=== PATIENT | female | born 1990 | race Caucasian/White ===

== ENCOUNTER 2017-06-14 07:28 | Inpatient (IN) | payer OTHER ==
[2017-06-14 07:11] VITALS: BMI 24.5
[2017-06-14] MEDS: Lactated Ringer's 1,000 ML IV SCH ×3 (07:20→21:51)
[2017-06-14] MEDS ORDERED: Oxytocin 20 units in LR 2,000 ML IV ONE (07:48)
[2017-06-14] MEDS ORDERED: cefOXitin IV 2 gm in Dextrose 2 GM/50 ML BAG IVPB ONE ×2 (07:50→08:00)
[2017-06-14 07:56] LABS: BASO % 0.3 % (0.0-2.0); EOS # 0.2 K/uL (0.0-0.7); EOS % 2.3 % (0.0-4.0); HEMOGLOBIN 10.7 g/dL (11.0-16.0); LYMPH # 2.7 K/uL (1.0-4.3); LYMPH % 30.2 % (20.0-40.0); MEAN CELL VOLUME 88.5 fL (81.0-99.0); MEAN CORPUSCULAR HGB CONC 33.9 g/dL (33.0-37.0); MONO # 0.5 K/uL (0.0-0.8); MONO % 5.9 % (0.0-10.0); NEUT # 5.5 K/uL (1.8-7.0); NEUT % 61.3 % (50.0-75.0); RBC 3.56 Mil/uL (3.80-5.20); RED CELL DISTRIBUTION WIDTH 13.9 % (11.5-14.5)
[2017-06-14] MEDS ORDERED: Sodium Citrate/Citric Acid 15 ml Sol PO ONE (08:00)
[2017-06-14 08:07] LABS: ALBUMIN 3.3 g/dL (3.5-5.0)
[2017-06-14 08:10] LABS: ALB/GLOB RATIO 1.1 (1.0-2.1); ALT/SGPT 24 U/L (9-52); AST/SGOT 23 U/L (14-36); BLOOD UREA NITROGEN 5 mg/dL (7-17); GFR AFRICAN-AMERICAN > 60; GFR NON-AFRICAN AMERICAN > 60
[2017-06-14 08:11] LABS: CALCIUM 8.4 mg/dl (8.6-10.4)
[2017-06-14 08:18] LABS: SQUAMOUS EPITHIAL 57 /hpf (0-5); URINE BACTERIA OCC (<OCC); URINE BILIRUBIN NEGATIVE (NEGATIVE); URINE BLOOD NEGATIVE (NEGATIVE); URINE CLARITY Hazy (Clear); URINE COLOR Yellow (YELLOW); URINE GLUCOSE (UA) NORMAL (Normal); URINE LEUKOCYTE ESTERASE 2+ Leu/uL (Negative); URINE NITRATE NEGATIVE (NEGATIVE); URINE PROTEIN NEGATIVE (NEGATIVE)
[2017-06-14] MEDS ORDERED: HYDROmorphone 0.5 mg/0.5 ml ISec IVP PRN ×2 (10:14→12:52)
[2017-06-14] MEDS ORDERED: DiphenhydrAMINE 50 mg/ml Inj IVP PRN (10:45)
[2017-06-14] MEDS ORDERED: Oxycodone/Acetaminophen 5/325 mg Tab PO PRN ×2 (11:00→14:00)
--- NOTE | 2017-06-14 11:01 | OBDS ---
DELIVERY PERSONNEL Delivery Doctor: Sandy Wells MD Sharepoint Trainer: Carter Richmond RN Anesthesiologist: Simone Lemus MD Lock Fitter: Deacon WOODSp d driver MATERNAL INFORMATION Delivery Anesthesia: Spinal Medications in Delivery: PITOCIN 20units Estimated Blood Loss (ml): 700 Placenta Cultured: No Maternal Complications: None Provider Comments: repeat Csection done ebl 700cc LABOR SUMMARY EDC: 06/21/2017 00:00 No. Babies in Womb: 1 Attempted: No Labor Anesthesia: None LABOR INFORMATION Oxytocin: N/A Group B Beta Strep: Negative Steroids Given: None Reason Steroids Not Administered: Not Applicable MEMBRANES Membranes Rupture Method: Artificial VAGINAL DELIVERY Episiotomy: None Laceration Extension: N/A Laceration Type: None CSECTION DELIVERY Primary Indication: Repeat Elective Secondary Indication: N/A CSection Urgency: N/A CSection Incidence: Repeat Labor: N/A Elective: Elective Uterine Closure: Double-layer closure BABY A INFORMATION Delivery Date/Time: 06/14/2017 09:06 Method of Delivery: Born in Route : No : N/A Forceps: N/A Vacuum Extraction: N/A Shoulder Dystocia : No SHOULDER DYSTOCIA BABY A Delivery Date/Time: 06/14/2017 09:06 INFORMATION BABY A Gestational Age at Delivery: 39.0 Gestational Status: Term Outcome : Liveborn IDENTIFICATION/MEDS BABY A ID Band Number: [id number] ID Band Location: Left Leg; Left Arm Sensor Number: [id number] Sensor Location : Cord Clamp WEIGHT/LENGTH BABY A Birthweight (gms): 3310 Infant Weight (lb): 7 Infant Weight (oz): 5 Length Inches: 19.50 Infant Length cms: 49.5
[2017-06-14] MEDS ORDERED: HYDROmorphone 0.5 mg/0.5 ml ISec ONE (12:54)
--- NOTE | 2017-06-14 14:12 | OBADHP ---
Datetime: 06/14/2017 07:44 Admit Comment, IP Provider: 27 yo at 39 weeks 0 days JACOBO 06/21/17 by LMP c/w 30w2d US present s to L and D for scheduled repeat C/S. Patient is doing well, no complaints. Endorses +FM, denies CTX , vaginal bleeding, leakage of fluid. Issues: Late to care Hx of Chlamydia - Chlamydia + in urine on 03/17/17, SANAZ negative 05/23/17 C/S x 2 OB Hx: 1. 2012 SAB 2. 2014 PLTCD 2/2 hx of seizures, M 7lb0oz, at [facility] [place], no complications 3. 2015 RLTCD M [id number], at [facility], no complications [employer] Hx: LMP 09/14/2016 11//7 days Denies hx of abnormal paps Denies hx of fibroids/ovarian cysts Hx of Chlamydia in 2012 Allergies: NKDA Medications: PNV, Ferrous sulfate Medical Hx: Seizures, last seizure >10 years ago Surgical Hx: C/S x 2 Social Hx: Denies alcohol, tobacco, drug use Family Hx: Denies Labs: O+ Rubella immune HIV NR HepBsag negative RPR NR CF negative 1hr GCT 134 HgbA1C 5.3 GBS negative Last US 05/25: Single IUP, EFW 3021g, placenta anteroposteriorly/fundus A/P: 27 yo at 39 weeks presents for repeat C/S 1. Stable, afebrile 2. Admit to L and D 3. CEFM and TOCO 4. Admission labs: T+S, CBC, CMP, RPR, UA 5. LR bolus 6. NPO 7. Cefoxitin 2gm preoperatively 8. Consents signed and in chart 9. Patient reports that she desires BTL however consents were never signed, discussed with patient other forms of contraception 10. Plan d/w attending Jamila Oropeza PGY-1 OB attending Patient seen and examined.Agree with resident exam, assessment and plan Chief complaint-term ; previous csection Pelvic Type - PN: Adequate Extremities - PN: Normal Abdomen - PN: Normal Back - PN: Normal Breast - PN: Normal Lungs - PN: Normal Heart - PN: Normal Thyroid - PN: Normal Neurologic - PN: Normal HEENT - PN: Normal General - PN: Normal FHR - Baseline A Provider: 135 Comments, ACOG Physical Exam: VS: BP 117/76, HR 105, T 97.9 Gen: AAOx3, NAD CV: RRR Lungs: CTA B/L Abdomen: soft, gravid Ext: No clubbing, cyanosis, edema EFM: 135bpm, Moderate variability, +accels, -decels TOCO: occasional Gestation - Est Wks by US: 39.0 Vital Signs Provider: Reviewed IP Chief Complaint: Scheduled Section NICHD Variability Prov Fetus A: Moderate 6-25bpm NICHD Accel Fetus A IP Provider: [id number] FHR Category Provider Fetus A: Category I NICHD Decel Fetus A IP Provider: None Genitourinary Exam: Normal DTRs - PN: Normal EGA AdmitDate IP: 39.0 IP Adm Impression: Term, intrauterine IP Admit Plan: Admit to unit; Initiate Section protocol
[2017-06-14] MEDS: cefOXitin IV 2 gm in Dextrose 2 GM/50 ML BAG IVPB SCH ×2 (17:08→23:54)
[2017-06-14] MEDS: Simethicone 80 mg Chewtab PO SCH ×2 (17:46→21:48)
[2017-06-15] MEDS: Lactated Ringer's 1,000 ML IV SCH (05:53)
[2017-06-15 09:11] LABS: HEMOGLOBIN 9.4 g/dL (11.0-16.0); MEAN CELL VOLUME 88.5 fL (81.0-99.0); MEAN CORPUSCULAR HEMOGLOBIN 29.5 pg (27.0-31.0); MEAN CORPUSCULAR HGB CONC 33.3 g/dL (33.0-37.0); RBC 3.18 Mil/uL (3.80-5.20); RED CELL DISTRIBUTION WIDTH 14.1 % (11.5-14.5); WHITE BLOOD COUNT 11.6 K/uL (4.8-10.8)
[2017-06-15] MEDS: Simethicone 80 mg Chewtab PO SCH ×4 (09:48→21:07)
[2017-06-15] MEDS: Prenatal Multivit/Folic Acid/Iron Tab PO SCH (09:48)
--- NOTE | 2017-06-15 10:42 | OP ---
PROCEDURE DATE: 06/14/2017 PREOPERATIVE DIAGNOSES: 1. Previous section. 2. Term intrauterine . POSTOPERATIVE DIAGNOSES: 1. Previous section. 2. Term intrauterine . PROCEDURE PERFORMED: Repeat low transverse section. SURGEON: Max Wells MD ASSISTANTS: 1. Allen Justin MD 2. Dr. Collins, PGY1. TYPE OF ANESTHESIA: Spinal. ANESTHESIA ADMINISTERED BY: Dr. Quevedo. FINDINGS: Viable female with rate of 7 pounds 5 ounces and 's of 9 at 1 minute and 9 in 5 minutes of life. ESTIMATED BLOOD LOSS: 700 mL. COMPLICATIONS: None. SPECIMENS: Placenta and cord blood. DESCRIPTION OF PROCEDURE: After informed consent was obtained, the patient was taken to the operating room, where spinal anesthesia was administered by the anesthesia team. She was placed dorsal supine position with leftward tilt. She was then prepped and draped in the usual standard manner. Ghosh catheter was placed transurethrally for bladder drainage. Once she was prepped and draped in the sterile manner, the previous scar was removed sharply with the help of the scalpel. Incision was then carried down to the underlying level of fascia with the help of the Bovie. The fascia was then incised in the midline and incision extended laterally with Ravi scissors. Superior aspect of fascial incision was then grasped with Alex clamps, elevated, and the underlying rectus muscles were dissected off. Attention was then turned to the inferior aspect of the fascial incision, which in a similar fashion was then grasped with Alex clamp, elevated and the underlying rectus muscle were dissected off. The rectus muscle then tented up in the midline with Allis clamp and sharply in the midline with the help of scalpel. The rectus muscle was then . The peritoneum was entered bluntly. The peritoneum was bluntly stretched. The vesicouterine peritoneum was identified and this was picked up with Metzenbaum scissors and then incision was made and then the incision extended laterally and a bladder flap was created sharply. The lower uterine segment was identified and transverse incision was made over the uterine segment with the help of a fresh scalpel. The incision extended laterally. The membranes were ruptured. The infant's head was the delivered atraumatically. The body and the shoulders were delivered without any difficulty and the cord was then clamped and cut. The infant was then handed over to the awaiting pediatricians. The placenta was then manually removed and the uterus was exteriorized and cleared off all clots and debris. The uterus was noted to be groggy and thereafter Methergine was given by the anesthesia team to the patient, as well as Pitocin mix and IV fluids were started. The uterus was noted to firm up at this point. Uterine incision was repaired with 0 Vicryl in a running fashion and second layer of same suture was used to imbricate the first layer and also to obtain hemostasis. Adequate hemostasis was noted at the uterine incision repair site. The gutters and the pelvis was irrigated and suctioned. The uterus was returned to the patient's abdomen. Bleeding was noted from the midsection of the uterus and this was suture ligated using 0 Monocryl with [id number] sutures. Interrupted stitch of 2-0 chromic was also placed and adequate hemostasis at this point was noted from the uterine incision repair site. The peritoneum was therefore closed with 2-0 Polysorb in running fashion. The *------* layer was reapproximated using 2-0 Polysorb via mattress suture. The fascia was closed with 0 Vicryl in a running fashion. The subcutaneous fat was reapproximated with 2-0 Polysorb. The skin was then closed with logan. Sponge, lap, needle, and instrument count was correct x3 as reported to me at the end of the procedure. Please note that the procedure required the operating room surgical technologist of Dr. Justin and Dr. Collins to assist with the dissection of the tissues and also to assist with the delivery of the infant, as well as to assist with the closure of the abdominal wall and the skin. Please note that both the surgical assistants were present and scrubbed for the entire duration of the procedure. Max Wells MD
--- NOTE | 2017-06-15 20:16 | OBPPN ---
Datetime: 06/15/2017 20:07 PP Pain Prov: Within normal limits PP Nausea Prov: Denies PP Flatus Prov: No PP BM Prov: No PP Breasts Prov: Normal PP Heart Prov: Normal PP Lungs Prov: Normal PP Abdomen/Uterus Prov: Normal PP Lochia Prov: Normal PP Vulva/Perineum Prov: Not Done PP CVA Tenderness Prov: Normal PP Extremities Prov: Normal PP C/S Incision Prov: Normal PP Progress Prov: Normal PP Comments Phys Exam Prov: Skin: warm, dry Abdomen: (+) BS. softly distended. Dressing clean and dry. Fundus mildly appropriately tender, fir m, mobile, 1 FB below umbilicus. Mild lochia rubra Extremities: no calf tenderness All other systems reviewed and are negative PP Impression Prov: Normal progression PP Plan Prov: Continue present management PP Progress Note Prov: Patient seen and evaluated at approximately 0750 hours: received in bed. Stacey stfeeding. Sat up in chair earlier; voided. Denies dizziness, lightheadedness, nausea or vomiting. P.E.: as above. WD in NAD. Awake, alert, oriented to time, person and place. Pleasant and cooperat asye - POD#1 H/H 9.4/28.1. Rh(+) Assessment: POD#1, 27 y.o. P3013, S/P reteat C/S; no BTL. Afebrile; vital signs stable. Mild lochi a rubra. Anemia - asymptomatic and hemodynamically stable. clinically stable. Plan: 1) encourage ambulation 2) Advance diet 3) continue iron Vital Signs Provider PP: Reviewed; Within Normal Limits
--- NOTE | 2017-06-16 08:36 | OBPPN ---
Datetime: 06/16/2017 08:30 PP Pain Prov: Within normal limits PP Nausea Prov: Denies PP Flatus Prov: Yes PP BM Prov: No PP Breasts Prov: Normal PP Heart Prov: Normal PP Lungs Prov: Normal PP Abdomen/Uterus Prov: Normal PP Lochia Prov: Normal PP Vulva/Perineum Prov: Normal PP CVA Tenderness Prov: Normal PP Extremities Prov: Normal PP C/S Incision Prov: Normal PP Progress Prov: Normal PP Comments Phys Exam Prov: see below PP Impression Prov: Normal progression PP Plan Prov: Continue present management PP Progress Note Prov: pt seen and examined and reports pain is controlled with medication. pt is a mbualting and voiding without difficulty. Pt denies any fevers, chills, nausea or vomiting, CP, SOB. Pt reports passing flatus, no BM. Pt denies any urge to go. Pt denies heavy bleeding Pt is breast fee ding. VSS PE: GEN NAD, AAOx 3 BREAST: NT, Non engorbed b/l CVS: RRR, +S1/S2 RESP: CTAB/l ABD: soft, NT/ND, no guarding, no rebound tenderness, no rigidity, +BS INCSION: C/D/I , logan intact FUNDUS: Firm, below level of umbilicus, minimal lochia, non foul smelling EXT: negative homans sign, negative calf tenderness a/p s/p PLTCS CxS POD #2 doing well -pain managment: percocet/motrin -Diet: regular -Activity: Encourage ambulation, breast feeding -Incentive spirometer, abdominal binder -Possible d/c -Advised Return to Clinic within 1 week for staple removal -Precautions given IP PP Procedures: None Vital Signs Provider PP: Reviewed; Within Normal Limits
[2017-06-16] MEDS: Simethicone 80 mg Chewtab PO SCH ×2 (09:25→13:11)
[2017-06-16] MEDS: Prenatal Multivit/Folic Acid/Iron Tab PO SCH (09:26)
--- NOTE | 2017-06-16 14:47 | OBDCSUM ---
Datetime: 06/16/2017 14:07 Discharged to, Provider: Home Follow up at, Provider: david Disch Instr Activity: Normal activity Disch Instr Diet: Regular Discharge Instructions, Provider: Routine instructions given Discharge Diagnosis, Provider: Term Delivered Discharge Time: 06/16/2017 15:00 Follow up in weeks, Provider: 06-21-17 Disch Referrals: None Contraception discussed, Prov: Yes Disch Activity Restrictions: No lifting; Minimize stair-climbing; No sexual activity; Nothing in vag bhavya - [place], tampons, douche Discharge Comment, Provider: follow up in clinic htis week for staple removal if fevers, chills, nause, vomiiting, heavy bleeding more than 2 pads/ hour, pain, go to nearest ER and call
[2017-06-16 16:10] VITALS: BP 98/67; PULSE 100; RESP 20; TEMP 98.4; O2SAT 98
== END 2017-06-16 16:10 | disposition home or self-care (01) | DRG 370 ==
LOC: C.4D 07:28 → C.4M 13:15
PROVIDERS: ADMIT Student in an Organized Health Care Education/Training Program; ATTEND Student in an Organized Health Care Education/Training Program
PROC: 10D00Z1 Extraction of Products of Conception, Low, Open Approach (ICD-10-PCS; principal; 2017-06-14)
DX: O34.211 Maternal care for low transverse scar from previous cesarean delivery (principal); O99.02 Anemia complicating childbirth; Z37.0 Single live birth; Z3A.39 39 weeks gestation of pregnancy